=== PATIENT | female | born 1960 | race Caucasian/White ===

== ENCOUNTER 2019-04-11 08:45 | Inpatient (IN) | payer OTHER ==
[~2019-04-11] VITALS: Ht 177.8 cm; Wt 69.0 kg
--- NOTE | 2019-04-11 09:04 | NUR ---
PATIENT ARRIVES TO THE ER WITH ABDOMINAL PAIN AND NUMBNESS THAT BEGAN ONE WEEK AGO AND HAS GOTTEN WORSE, HER BELLY IS SWOLLEN LIKE ASCITES. SHE QUIT DRINKING ALCOHOL ONE WEEK AGO. SHE CAN'T EAT WELL. SHE IS WEAK. SHE IS JAUNDICED. SHE STATES NO LIVER HISTORY OF ANY TYPE OF FAILURE.
[2019-04-11 09:29] LABS: MEAN CORPUSCULAR HEMOGLOBIN 40.7 pg (27.0-34.8); MEAN CORPUSCULAR HGB CONC 34.4 g/dL (32.4-35.8); MEAN CORPUSCULAR VOLUME 118.3 fL (80-100); MEAN PLATELET VOLUME 7.2 fL (7.4-10.4); PLATELET COUNT 218 x10^3/uL (130-400); RED BLOOD COUNT 2.71 x10^6/uL (3.82-5.3); RED CELL DISTRIBUTION WIDTH 19.5 % (9.6-15.2)
--- NOTE | 2019-04-11 09:37 | NUR ---
cath urine urine is oily orange color barely any - 20 ml. sent to lab labeled in her presence
[2019-04-11 09:38] LABS: INTERNATIONAL NORMALIZED RATIO 1.5 (0.93-1.1); PROTHROMBIN TIME 15.5 Seconds (9.6-11.5)
--- NOTE | 2019-04-11 09:47 | NUR ---
patient left for u/s of legs and belly
[2019-04-11 09:52] LABS: BASOPHILS # (AUTO) 0.01 x10^3/uL (0-0.1); BASOPHILS % (AUTO) 0 % (0-1); EOSINOPHILS # (AUTO) 0.01 x10^3/uL (0-0.4); EOSINOPHILS % (AUTO) 0 % (1-7); LYMPHOCYTES # (AUTO) 0.66 x10^3/uL (1-3.4); LYMPHOCYTES % (AUTO) 14 % (22-44); MD SCAN; MONOCYTES # (AUTO) 0.81 x10^3/uL (0.2-0.8); MONOCYTES % (AUTO) 17 % (2-9); NEUTROPHILS # (AUTO) 3.19 x10^3/uL (1.8-6.8); NEUTROPHILS % (AUTO) 68 % (42-75)
[2019-04-11 09:53] LABS: CHLORIDE 85 mmol/L (98-107)
[2019-04-11 09:57] LABS: ALBUMIN 2.4 g/dL (3.4-5.0); ANION GAP 12 mmol/L (5-15)
[2019-04-11] MEDS ORDERED: SODIUM CHLORIDE FLUSH 10ML SYR IVF ONE (10:00)
[2019-04-11 10:01] LABS: ALANINE AMINOTRANSFERASE 154 U/L (12-78); ALKALINE PHOSPHATASE 287 U/L (45-117); CREATININE 0.59 mg/dL (0.55-1.02); TOTAL PROTEIN 6.2 g/dL (6.4-8.2)
[2019-04-11 10:02] LABS: MICROSCOPIC INDICATED
[2019-04-11 10:04] LABS: CULTURE INDICATED? NO
[2019-04-11] MEDS ORDERED: POTASSIUM CHLORIDE 20 MEQ TAB.ER.PRT ONE (11:00)
[2019-04-11] MEDS ORDERED: POTASSIUM CHLORIDE 20 MEQ TAB.ER.PRT PO ONE (11:00)
--- NOTE | 2019-04-11 11:20 | NUR ---
patient infusing kcl on pump and monitor, and medicated. we are awaiting admission orders. vss.
[2019-04-11] MEDS ORDERED: SODIUM CHLORIDE FLUSH 10ML SYR IVF PRN (11:30)
[2019-04-11] MEDS ORDERED: LORazepam 1MG TABLET PO PRN ×3 (12:00)
[2019-04-11] MEDS ORDERED: ENOXAPARIN 40 MG/0.4 ML SQ SCH (12:00)
[2019-04-11] MEDS ORDERED: ONDANSETRON ODT 4 MG PO PRN (12:00)
[2019-04-11] MEDS ORDERED: LORazepam 0.5MG TABLET PO PRN (12:00)
[2019-04-11] MEDS ORDERED: ONDANSETRON 2MG/ML, 2ML IVPush PRN (12:00)
[2019-04-11] MEDS ORDERED: ACETAMINOPHEN 500 MG TABLET PO PRN (12:00)
[2019-04-11] MEDS ORDERED: POTASSIUM CHLORIDE 40 MEQ in SODIUM CHLORIDE 0.9% 1,000 ML IV ONE (12:00)
[2019-04-11 12:16] VITALS: BP 110/75
[2019-04-11] MEDS ORDERED: FLU VAC QS 19-20(4YR UP)CEL/PF 0.5 ML IM-VACC ONE (13:30)
[2019-04-11] MEDS: MULTIVITAMINS/MINERALS TABLET PO SCH (14:43)
[2019-04-11] MEDS: FOLIC ACID 1 MG TABLET PO SCH (14:43)
[2019-04-11] MEDS: THIAMINE 100MG TABLET PO SCH (14:44)
[2019-04-11 16:18] LABS: ANION GAP 10 mmol/L (5-15); BILIRUBIN, DIRECT 8.2 mg/dL (0.1-0.2); CALCIUM 8.4 mg/dL (8.5-10.1); CHLORIDE 91 mmol/L (98-107); CREATININE 0.66 mg/dL (0.55-1.02)
[2019-04-11] MEDS: POTASSIUM CHLORIDE 20 MEQ TAB.ER.PRT PO SCH (16:33)
[2019-04-11 16:44] LABS: BILIRUBIN,INDIRECT 1.9 mg/dL (0.0-2.0); BILIRUBIN,TOTAL 10.1 mg/dL (0.2-1.0)
[2019-04-11 18:53] VITALS: BP 104/72
[2019-04-12 00:48] VITALS: BP 100/68
[2019-04-12 05:06] LABS: MEAN CORPUSCULAR HEMOGLOBIN 40.4 pg (27.0-34.8); MEAN CORPUSCULAR HGB CONC 33.9 g/dL (32.4-35.8); MEAN PLATELET VOLUME 7.5 fL (7.4-10.4); PLATELET COUNT 238 x10^3/uL (130-400); RED BLOOD COUNT 2.69 x10^6/uL (3.82-5.3)
[2019-04-12 05:08] LABS: ALBUMIN 2.3 g/dL (3.4-5.0); ANION GAP 6 mmol/L (5-15); CALCIUM 8.1 mg/dL (8.5-10.1); CHLORIDE 92 mmol/L (98-107)
[2019-04-12 05:12] LABS: ALANINE AMINOTRANSFERASE 141 U/L (12-78); ALKALINE PHOSPHATASE 278 U/L (45-117); BILIRUBIN,TOTAL 8.8 mg/dL (0.2-1.0); CREATININE 0.57 mg/dL (0.55-1.02); TOTAL PROTEIN 5.9 g/dL (6.4-8.2)
[2019-04-12 06:27] LABS: BASOPHILS # (AUTO) 0.01 x10^3/uL (0-0.1); BASOPHILS % (AUTO) 0 % (0-1); EOSINOPHILS # (AUTO) 0.01 x10^3/uL (0-0.4); EOSINOPHILS % (AUTO) 0 % (1-7); LYMPHOCYTES # (AUTO) 0.95 x10^3/uL (1-3.4); LYMPHOCYTES % (AUTO) 21 % (22-44); MD SCAN; MONOCYTES % (AUTO) 13 % (2-9); NEUTROPHILS # (AUTO) 3.04 x10^3/uL (1.8-6.8); NEUTROPHILS % (AUTO) 66 % (42-75); RED CELL DISTRIBUTION WIDTH 20.2 % (9.6-15.2)
[2019-04-12] MEDS: THIAMINE 100MG TABLET PO SCH (09:13)
[2019-04-12] MEDS: MULTIVITAMINS/MINERALS TABLET PO SCH (09:13)
[2019-04-12] MEDS: POTASSIUM CHLORIDE 20 MEQ TAB.ER.PRT PO SCH ×2 (09:13→18:23)
[2019-04-12] MEDS: FOLIC ACID 1 MG TABLET PO SCH (09:13)
[2019-04-12 09:29] VITALS: BP 99/71
[2019-04-12 14:45] LABS: ANA SCREEN POSITIVE (Negative); ANA TITER MIXED; ANTI-NUCLEAR ANTIBODY PATTERN MIXED
[2019-04-12 15:49] VITALS: BP 99/69
[2019-04-12 19:25] VITALS: BP 104/74
[2019-04-13 01:31] VITALS: BP 98/65
[2019-04-13 05:17] LABS: MEAN CORPUSCULAR HEMOGLOBIN 40.6 pg (27.0-34.8); MEAN CORPUSCULAR HGB CONC 33.8 g/dL (32.4-35.8); MEAN CORPUSCULAR VOLUME 120.2 fL (80-100); MEAN PLATELET VOLUME 7.6 fL (7.4-10.4); PLATELET COUNT 208 x10^3/uL (130-400); RED BLOOD COUNT 2.57 x10^6/uL (3.82-5.3); RED CELL DISTRIBUTION WIDTH 20.5 % (9.6-15.2)
[2019-04-13 05:25] LABS: CHLORIDE 94 mmol/L (98-107)
[2019-04-13 05:40] LABS: ALANINE AMINOTRANSFERASE 127 U/L (12-78); ALBUMIN 2.1 g/dL (3.4-5.0); ALKALINE PHOSPHATASE 256 U/L (45-117); ANION GAP 5 mmol/L (5-15); BILIRUBIN,TOTAL 7.7 mg/dL (0.2-1.0); CREATININE 0.48 mg/dL (0.55-1.02); TOTAL PROTEIN 5.6 g/dL (6.4-8.2)
[2019-04-13 05:54] LABS: ANISOCYTOSIS 1+; BASOPHILS # (AUTO) 0.02 x10^3/uL (0-0.1); BASOPHILS % (AUTO) 1 % (0-1); EOSINOPHILS # (AUTO) 0.03 x10^3/uL (0-0.4); EOSINOPHILS % (AUTO) 1 % (1-7); LYMPHOCYTES # (AUTO) 1.06 x10^3/uL (1-3.4); LYMPHOCYTES % (AUTO) 25 % (22-44); MD MORPH REVIEW ONLY; MONOCYTES # (AUTO) 0.58 x10^3/uL (0.2-0.8); MONOCYTES % (AUTO) 14 % (2-9); NEUTROPHILS # (AUTO) 2.61 x10^3/uL (1.8-6.8); NEUTROPHILS % (AUTO) 61 % (42-75); TARGET CELLS 1+
[2019-04-13 05:55] LABS: <PLATELET ESTIMATE> ADEQUATE; <PLT MORPHOLOGY> NORMAL PLT MORPH; POLYCHROMASIA 1+
[2019-04-13 07:47] VITALS: BP 100/70
[2019-04-13] MEDS: POTASSIUM CHLORIDE 20 MEQ TAB.ER.PRT PO SCH ×2 (08:11→16:59)
[2019-04-13] MEDS: MULTIVITAMINS/MINERALS TABLET PO SCH (08:11)
[2019-04-13] MEDS: THIAMINE 100MG TABLET PO SCH (08:11)
[2019-04-13] MEDS: FOLIC ACID 1 MG TABLET PO SCH (08:11)
[2019-04-13] MEDS ORDERED: POTASSIUM PHOSPHATE 44 MEQ in SODIUM CHLORIDE 0.9% 500 ML IV ONE (09:00)
[2019-04-13] MEDS ORDERED: MAGNESIUM SULFATE PMX 2GM/50ML 50 ML IV ONE (09:00)
[2019-04-13 14:25] VITALS: BP 96/66
[2019-04-13 19:16] VITALS: BP 90/62
[2019-04-14 00:54] VITALS: BP 96/66
[2019-04-14 05:17] LABS: MEAN CORPUSCULAR HGB CONC 34.3 g/dL (32.4-35.8); MEAN CORPUSCULAR VOLUME 122.3 fL (80-100); MEAN PLATELET VOLUME 7.6 fL (7.4-10.4); PLATELET COUNT 221 x10^3/uL (130-400); RED BLOOD COUNT 2.41 x10^6/uL (3.82-5.3); RED CELL DISTRIBUTION WIDTH 21.1 % (9.6-15.2)
[2019-04-14 05:23] LABS: INTERNATIONAL NORMALIZED RATIO 1.54 (0.93-1.1); PROTHROMBIN TIME 15.9 Seconds (9.6-11.5)
[2019-04-14 05:29] LABS: CHLORIDE 96 mmol/L (98-107)
[2019-04-14 05:33] LABS: ANION GAP 6 mmol/L (5-15); CALCIUM 7.5 mg/dL (8.5-10.1); CREATININE 0.46 mg/dL (0.55-1.02)
[2019-04-14 05:34] LABS: ALANINE AMINOTRANSFERASE 114 U/L (12-78); ALBUMIN 1.9 g/dL (3.4-5.0); ALKALINE PHOSPHATASE 227 U/L (45-117); BILIRUBIN,TOTAL 6.6 mg/dL (0.2-1.0); TOTAL PROTEIN 5.3 g/dL (6.4-8.2)
[2019-04-14 06:13] LABS: BASOPHILS # (AUTO) 0.02 x10^3/uL (0-0.1); BASOPHILS % (AUTO) 1 % (0-1); EOSINOPHILS # (AUTO) 0.05 x10^3/uL (0-0.4); EOSINOPHILS % (AUTO) 1 % (1-7); LYMPHOCYTES # (AUTO) 1.03 x10^3/uL (1-3.4); LYMPHOCYTES % (AUTO) 22 % (22-44); MD SCAN; MONOCYTES # (AUTO) 0.74 x10^3/uL (0.2-0.8); MONOCYTES % (AUTO) 16 % (2-9); NEUTROPHILS # (AUTO) 2.89 x10^3/uL (1.8-6.8); NEUTROPHILS % (AUTO) 61 % (42-75)
[2019-04-14 07:25] VITALS: BP 97/68
[2019-04-14] MEDS: THIAMINE 100MG TABLET PO SCH (08:19)
[2019-04-14] MEDS: POTASSIUM CHLORIDE 20 MEQ TAB.ER.PRT PO SCH ×2 (08:19→18:13)
[2019-04-14] MEDS: MULTIVITAMINS/MINERALS TABLET PO SCH (08:19)
[2019-04-14] MEDS: FOLIC ACID 1 MG TABLET PO SCH (08:20)
[2019-04-14] MEDS ORDERED: PHYTONADIONE 5 MG TABLET PO ONE (13:00)
[2019-04-14 14:11] VITALS: BP 94/63
[2019-04-14 19:07] VITALS: BP 101/69
[2019-04-15 00:15] VITALS: BP 135/93
[2019-04-15 05:28] LABS: MEAN CORPUSCULAR HEMOGLOBIN 41.8 pg (27.0-34.8); MEAN PLATELET VOLUME 7.7 fL (7.4-10.4); PLATELET COUNT 221 x10^3/uL (130-400); RED BLOOD COUNT 2.33 x10^6/uL (3.82-5.3); RED CELL DISTRIBUTION WIDTH 21.6 % (9.6-15.2)
[2019-04-15 05:30] LABS: ALANINE AMINOTRANSFERASE 102 U/L (12-78); ALBUMIN 1.8 g/dL (3.4-5.0); ANION GAP 6 mmol/L (5-15); CALCIUM 7.7 mg/dL (8.5-10.1); CHLORIDE 98 mmol/L (98-107); CREATININE 0.42 mg/dL (0.55-1.02)
[2019-04-15 05:32] LABS: ALKALINE PHOSPHATASE 219 U/L (45-117); BILIRUBIN,TOTAL 6.4 mg/dL (0.2-1.0); TOTAL PROTEIN 5.2 g/dL (6.4-8.2)
[2019-04-15 05:39] LABS: INTERNATIONAL NORMALIZED RATIO 1.47 (0.93-1.1); PROTHROMBIN TIME 15.2 Seconds (9.6-11.5)
[2019-04-15 06:15] LABS: BASOPHILS # (AUTO) 0.01 x10^3/uL (0-0.1); BASOPHILS % (AUTO) 0 % (0-1); EOSINOPHILS # (AUTO) 0.03 x10^3/uL (0-0.4); EOSINOPHILS % (AUTO) 1 % (1-7); LYMPHOCYTES # (AUTO) 0.83 x10^3/uL (1-3.4); LYMPHOCYTES % (AUTO) 16 % (22-44); MD SCAN; MONOCYTES # (AUTO) 0.69 x10^3/uL (0.2-0.8); MONOCYTES % (AUTO) 13 % (2-9); NEUTROPHILS # (AUTO) 3.75 x10^3/uL (1.8-6.8); NEUTROPHILS % (AUTO) 71 % (42-75)
[2019-04-15 06:40] VITALS: BP 93/62
[2019-04-15] MEDS ORDERED: PHYTONADIONE 5 MG TABLET PO ONE (08:00)
[2019-04-15] MEDS: MULTIVITAMINS/MINERALS TABLET PO SCH (09:49)
[2019-04-15] MEDS: POTASSIUM CHLORIDE 20 MEQ TAB.ER.PRT PO SCH ×2 (09:49→16:59)
[2019-04-15] MEDS: THIAMINE 100MG TABLET PO SCH (09:49)
[2019-04-15] MEDS: FOLIC ACID 1 MG TABLET PO SCH (09:49)
[2019-04-15 13:45] VITALS: BP 95/66
[2019-04-15 19:27] VITALS: BP 101/72
[2019-04-16] VITALS (11 sets, daily range): BP systolic 94–126; BP diastolic 64–87
[2019-04-16 05:46] LABS: MEAN CORPUSCULAR HEMOGLOBIN 41.5 pg (27.0-34.8); MEAN CORPUSCULAR VOLUME 121.9 fL (80-100); MEAN PLATELET VOLUME 7.3 fL (7.4-10.4); PLATELET COUNT 230 x10^3/uL (130-400); RED BLOOD COUNT 2.39 x10^6/uL (3.82-5.3); RED CELL DISTRIBUTION WIDTH 20.6 % (9.6-15.2)
[2019-04-16 05:53] LABS: ALANINE AMINOTRANSFERASE 97 U/L (12-78); ALBUMIN 1.7 g/dL (3.4-5.0); ANION GAP 4 mmol/L (5-15); CHLORIDE 97 mmol/L (98-107)
[2019-04-16 05:55] LABS: ALKALINE PHOSPHATASE 205 U/L (45-117); BILIRUBIN,TOTAL 6.6 mg/dL (0.2-1.0); TOTAL PROTEIN 5.2 g/dL (6.4-8.2)
[2019-04-16 06:45] LABS: BASOPHILS # (AUTO) 0.02 x10^3/uL (0-0.1); BASOPHILS % (AUTO) 0 % (0-1); EOSINOPHILS # (AUTO) 0.04 x10^3/uL (0-0.4); EOSINOPHILS % (AUTO) 1 % (1-7); LYMPHOCYTES # (AUTO) 0.94 x10^3/uL (1-3.4); LYMPHOCYTES % (AUTO) 19 % (22-44); MD SCAN; MONOCYTES # (AUTO) 0.66 x10^3/uL (0.2-0.8); MONOCYTES % (AUTO) 13 % (2-9); NEUTROPHILS # (AUTO) 3.43 x10^3/uL (1.8-6.8); NEUTROPHILS % (AUTO) 67 % (42-75)
[2019-04-16] MEDS: THIAMINE 100MG TABLET PO SCH (09:06)
[2019-04-16] MEDS: POTASSIUM CHLORIDE 20 MEQ TAB.ER.PRT PO SCH (09:06)
[2019-04-16] MEDS: FOLIC ACID 1 MG TABLET PO SCH (09:06)
[2019-04-16] MEDS: MULTIVITAMINS/MINERALS TABLET PO SCH (09:06)
[2019-04-16 09:13] LABS: INTERNATIONAL NORMALIZED RATIO 1.29 (0.93-1.1); PROTHROMBIN TIME 13.4 Seconds (9.6-11.5)
[2019-04-16] MEDS ORDERED: NALOXONE 1 MG/ML, 2ML ONE (15:30)
[2019-04-16] MEDS ORDERED: MIDAZOLAM 1 MG/ML, 5ML ONE (15:30)
[2019-04-16] MEDS ORDERED: FENTANYL PF 100 MCG/2ML ONE (15:30)
[2019-04-16] MEDS ORDERED: FLUMAZENIL 0.1 MG/1 ML, 5ML ONE (15:30)
[2019-04-17 01:51] VITALS: BP 96/62
[2019-04-17 05:42] LABS: INTERNATIONAL NORMALIZED RATIO 1.36 (0.93-1.1); PROTHROMBIN TIME 14.1 Seconds (9.6-11.5)
[2019-04-17 05:54] LABS: CHLORIDE 99 mmol/L (98-107); MEAN CORPUSCULAR HEMOGLOBIN 41.5 pg (27.0-34.8); MEAN CORPUSCULAR HGB CONC 34.1 g/dL (32.4-35.8); MEAN CORPUSCULAR VOLUME 121.8 fL (80-100); MEAN PLATELET VOLUME 7.4 fL (7.4-10.4); PLATELET COUNT 235 x10^3/uL (130-400); RED BLOOD COUNT 2.36 x10^6/uL (3.82-5.3); RED CELL DISTRIBUTION WIDTH 20.8 % (9.6-15.2)
[2019-04-17 06:05] LABS: ALANINE AMINOTRANSFERASE 94 U/L (12-78); ALBUMIN 1.8 g/dL (3.4-5.0); ALKALINE PHOSPHATASE 214 U/L (45-117); ANION GAP 7 mmol/L (5-15); CALCIUM 8.1 mg/dL (8.5-10.1); CREATININE 0.46 mg/dL (0.55-1.02); TOTAL PROTEIN 5.2 g/dL (6.4-8.2)
[2019-04-17 06:26] LABS: BASOPHILS # (AUTO) 0.02 x10^3/uL (0-0.1); BASOPHILS % (AUTO) 0 % (0-1); EOSINOPHILS # (AUTO) 0.02 x10^3/uL (0-0.4); EOSINOPHILS % (AUTO) 0 % (1-7); LYMPHOCYTES # (AUTO) 1.11 x10^3/uL (1-3.4); LYMPHOCYTES % (AUTO) 18 % (22-44); MD SCAN; MONOCYTES # (AUTO) 0.66 x10^3/uL (0.2-0.8); MONOCYTES % (AUTO) 11 % (2-9); NEUTROPHILS # (AUTO) 4.23 x10^3/uL (1.8-6.8); NEUTROPHILS % (AUTO) 70 % (42-75)
[2019-04-17] MEDS: MULTIVITAMINS/MINERALS TABLET PO SCH (08:47)
[2019-04-17] MEDS: FOLIC ACID 1 MG TABLET PO SCH (08:47)
[2019-04-17] MEDS: THIAMINE 100MG TABLET PO SCH (08:48)
[2019-04-17 08:59] VITALS: BP 95/68
[2019-04-17 13:26] VITALS: BP 91/61
[2019-04-17 19:35] VITALS: BP 100/66
[2019-04-18 00:58] VITALS: BP 110/74
[2019-04-18 06:16] LABS: MEAN CORPUSCULAR HEMOGLOBIN 41.9 pg (27.0-34.8); MEAN CORPUSCULAR HGB CONC 33.9 g/dL (32.4-35.8); MEAN CORPUSCULAR VOLUME 123.8 fL (80-100); MEAN PLATELET VOLUME 7.5 fL (7.4-10.4); PLATELET COUNT 245 x10^3/uL (130-400); RED BLOOD COUNT 2.45 x10^6/uL (3.82-5.3); RED CELL DISTRIBUTION WIDTH 20.1 % (9.6-15.2)
[2019-04-18 06:28] LABS: CHLORIDE 96 mmol/L (98-107)
[2019-04-18 06:36] LABS: ALANINE AMINOTRANSFERASE 88 U/L (12-78); ALBUMIN 1.9 g/dL (3.4-5.0); ALKALINE PHOSPHATASE 232 U/L (45-117); ANION GAP 9 mmol/L (5-15); BILIRUBIN,TOTAL 8.1 mg/dL (0.2-1.0); CALCIUM 7.9 mg/dL (8.5-10.1); CREATININE 0.36 mg/dL (0.55-1.02); TOTAL PROTEIN 5.3 g/dL (6.4-8.2)
[2019-04-18 06:47] LABS: BASOPHILS # (AUTO) 0.02 x10^3/uL (0-0.1); BASOPHILS % (AUTO) 1 % (0-1); EOSINOPHILS # (AUTO) 0.04 x10^3/uL (0-0.4); EOSINOPHILS % (AUTO) 1 % (1-7); LYMPHOCYTES # (AUTO) 1.13 x10^3/uL (1-3.4); LYMPHOCYTES % (AUTO) 23 % (22-44); MD MORPH REVIEW ONLY; MONOCYTES # (AUTO) 0.74 x10^3/uL (0.2-0.8); MONOCYTES % (AUTO) 15 % (2-9); NEUTROPHILS # (AUTO) 2.99 x10^3/uL (1.8-6.8); NEUTROPHILS % (AUTO) 61 % (42-75)
[2019-04-18 06:48] LABS: ANISOCYTOSIS 1+
[2019-04-18 06:49] LABS: POLYCHROMASIA 1+
[2019-04-18 06:52] LABS: <PLATELET ESTIMATE> ADEQUATE; <PLT MORPHOLOGY> NORMAL PLT MORPH; TARGET CELLS 1+
[2019-04-18 08:18] VITALS: BP 104/73
[2019-04-18] MEDS: THIAMINE 100MG TABLET PO SCH (08:24)
[2019-04-18] MEDS: MULTIVITAMINS/MINERALS TABLET PO SCH (08:24)
[2019-04-18] MEDS: FOLIC ACID 1 MG TABLET PO SCH (08:24)
[2019-04-18 13:05] VITALS: BP 103/72
[2019-04-18 19:55] VITALS: BP 102/65
[2019-04-19 00:39] VITALS: BP 106/72
[2019-04-19] MEDS: FOLIC ACID 1 MG TABLET PO SCH (08:42)
[2019-04-19] MEDS: MULTIVITAMINS/MINERALS TABLET PO SCH (08:42)
[2019-04-19] MEDS: THIAMINE 100MG TABLET PO SCH (08:42)
[2019-04-19 20:08] VITALS: BP 102/72
[2019-04-20 00:59] VITALS: BP 117/78
[2019-04-20 05:44] LABS: MEAN CORPUSCULAR HEMOGLOBIN 41.4 pg (27.0-34.8); MEAN CORPUSCULAR HGB CONC 33.7 g/dL (32.4-35.8); MEAN CORPUSCULAR VOLUME 122.8 fL (80-100); MEAN PLATELET VOLUME 7.2 fL (7.4-10.4); PLATELET COUNT 268 x10^3/uL (130-400); RED BLOOD COUNT 2.39 x10^6/uL (3.82-5.3); RED CELL DISTRIBUTION WIDTH 19.9 % (9.6-15.2)
[2019-04-20 05:51] LABS: CHLORIDE 99 mmol/L (98-107)
[2019-04-20 06:04] LABS: ALANINE AMINOTRANSFERASE 73 U/L (12-78); ALBUMIN 1.7 g/dL (3.4-5.0); ALKALINE PHOSPHATASE 212 U/L (45-117); ANION GAP 8 mmol/L (5-15); CALCIUM 7.8 mg/dL (8.5-10.1); CREATININE 0.39 mg/dL (0.55-1.02); TOTAL PROTEIN 5.3 g/dL (6.4-8.2)
[2019-04-20 06:09] LABS: MD YES
[2019-04-20 06:12] LABS: BAND#(MANUAL) 0.04 x10^3/uL; BANDS%(MANUAL) 1 % (0-7); BASOS#(MANUAL) 0.09 x10^3/uL (0-0.1); BASOS% (MANUAL) 2 % (0-1); EOS#(MANUAL) 0.13 x10^3/uL (0.0-0.4); EOS% (MANUAL) 3 % (1-7); LYMPH#(MANUAL) 1.06 x10^3/uL (1-3.4); LYMPHS% (MANUAL) 24 % (22-44); METAMYELOCYTES# (MANUAL) 0.04 x10^3/uL (0-0); METAMYELOCYTES% (MANUAL) 1 % (0-1); MONOS#(MANUAL) 0.35 x10^3/uL (0.3-2.7); MONOS% (MANUAL) 8 % (2-9); MYELOCYTES# (MANUAL) 0.04 x10^3/uL (0-0); MYELOCYTES% (MANUAL) 1 % (0-0); SEG#(MANUAL) 2.64 x10^3/uL (1.8-6.8); SEGS% (MANUAL) 60 % (42-75)
[2019-04-20 06:13] LABS: ANISOCYTOSIS 1+; POLYCHROMASIA 1+
[2019-04-20 06:15] LABS: <PLATELET ESTIMATE> ADEQUATE; <PLT MORPHOLOGY> NORMAL PLT MORPH; TARGET CELLS 1+
[2019-04-20 06:57] VITALS: BP 106/72
[2019-04-20] MEDS: FOLIC ACID 1 MG TABLET PO SCH (08:37)
[2019-04-20] MEDS: THIAMINE 100MG TABLET PO SCH (08:37)
[2019-04-20] MEDS: MULTIVITAMINS/MINERALS TABLET PO SCH (08:37)
[2019-04-20 12:49] VITALS: BP 100/69
[2019-04-20] MEDS ORDERED: POTASSIUM CHLORIDE 20 MEQ in SODIUM CHLORIDE 0.9% 250 ML IV ONE (15:30)
[2019-04-20] MEDS ORDERED: CHOLECALCIFEROL 400 UNITS/ML ORAL SOL PO SCH (16:30)
[2019-04-20] MEDS: ASCORBIC ACID 500 MG TABLET PO SCH (16:33)
[2019-04-20 19:50] VITALS: BP 100/63
[2019-04-20] MEDS: CALCIUM CARBONATE 500 MG TAB.CHEW PO SCH (20:45)
[2019-04-21 00:38] VITALS: BP 113/77
[2019-04-21 05:34] LABS: ALBUMIN 1.7 g/dL (3.4-5.0); ANION GAP 6 mmol/L (5-15); CALCIUM 7.9 mg/dL (8.5-10.1); CHLORIDE 100 mmol/L (98-107); CREATININE 0.41 mg/dL (0.55-1.02)
[2019-04-21 05:55] LABS: MEAN CORPUSCULAR HEMOGLOBIN 41.1 pg (27.0-34.8); MEAN CORPUSCULAR HGB CONC 33.5 g/dL (32.4-35.8); MEAN CORPUSCULAR VOLUME 122.6 fL (80-100); PLATELET COUNT 281 x10^3/uL (130-400); RED BLOOD COUNT 2.45 x10^6/uL (3.82-5.3); RED CELL DISTRIBUTION WIDTH 19.3 % (9.6-15.2)
[2019-04-21 06:15] LABS: MD YES
[2019-04-21 06:21] LABS: ANISOCYTOSIS 1+; BAND#(MANUAL) 0.14 x10^3/uL; BANDS%(MANUAL) 3 % (0-7); BASOS% (MANUAL) 2 % (0-1); EOS#(MANUAL) 0.05 x10^3/uL (0.0-0.4); EOS% (MANUAL) 1 % (1-7); LYMPH#(MANUAL) 0.91 x10^3/uL (1-3.4); LYMPHS% (MANUAL) 19 % (22-44); MONOS#(MANUAL) 0.43 x10^3/uL (0.3-2.7); MONOS% (MANUAL) 9 % (2-9); SEG#(MANUAL) 3.17 x10^3/uL (1.8-6.8); SEGS% (MANUAL) 66 % (42-75)
[2019-04-21 06:22] LABS: <PLATELET ESTIMATE> ADEQUATE; <PLT MORPHOLOGY> NORMAL PLT MORPH; POLYCHROMASIA 1+
[2019-04-21 06:23] LABS: TARGET CELLS 1+
[2019-04-21 07:06] VITALS: BP 113/74
[2019-04-21] MEDS: MULTIVITS,STRESS FORMULA 1 TABLET PO SCH (08:06)
[2019-04-21] MEDS: FOLIC ACID 1 MG TABLET PO SCH (08:07)
[2019-04-21] MEDS: ASCORBIC ACID 500 MG TABLET PO SCH ×2 (08:07→17:04)
[2019-04-21] MEDS: CALCIUM CARBONATE 500 MG TAB.CHEW PO SCH ×2 (08:07→19:47)
[2019-04-21 12:10] VITALS: BP 112/76
[2019-04-21] MEDS: CHOLECALCIFEROL 400 UNITS TABLET PO SCH (17:04)
[2019-04-21 19:38] VITALS: BP 137/90
[2019-04-22 00:59] VITALS: BP 128/91
[2019-04-22 06:29] LABS: ALANINE AMINOTRANSFERASE 68 U/L (12-78); ALBUMIN 1.7 g/dL (3.4-5.0); ANION GAP 8 mmol/L (5-15); CALCIUM 7.8 mg/dL (8.5-10.1); CHLORIDE 98 mmol/L (98-107); CREATININE 0.32 mg/dL (0.55-1.02)
[2019-04-22 06:31] LABS: ALKALINE PHOSPHATASE 197 U/L (45-117); BILIRUBIN,TOTAL 5.4 mg/dL (0.2-1.0); TOTAL PROTEIN 5.4 g/dL (6.4-8.2)
[2019-04-22 07:14] VITALS: BP 116/79
[2019-04-22] MEDS: ASCORBIC ACID 500 MG TABLET PO SCH ×2 (08:18→16:42)
[2019-04-22] MEDS: CALCIUM CARBONATE 500 MG TAB.CHEW PO SCH ×2 (08:18→20:00)
[2019-04-22] MEDS: MULTIVITS,STRESS FORMULA 1 TABLET PO SCH (08:18)
[2019-04-22] MEDS: FOLIC ACID 1 MG TABLET PO SCH (08:18)
[2019-04-22] MEDS: POTASSIUM CHLORIDE 20 MEQ TAB.ER.PRT PO SCH ×2 (09:59→16:42)
[2019-04-22] MEDS ORDERED: MAGNESIUM SULFATE PMX 2GM/50ML 50 ML IV ONE (10:00)
[2019-04-22 12:32] VITALS: BP 106/74
[2019-04-22] MEDS: CHOLECALCIFEROL 400 UNITS TABLET PO SCH (16:42)
[2019-04-22 20:06] VITALS: BP 132/89
[2019-04-23 01:21] VITALS: BP 120/81
[2019-04-23 05:27] LABS: MEAN CORPUSCULAR HEMOGLOBIN 41.7 pg (27.0-34.8); MEAN CORPUSCULAR HGB CONC 33.5 g/dL (32.4-35.8); MEAN CORPUSCULAR VOLUME 124.8 fL (80-100); MEAN PLATELET VOLUME 7.4 fL (7.4-10.4); PLATELET COUNT 262 x10^3/uL (130-400); RED BLOOD COUNT 2.37 x10^6/uL (3.82-5.3); RED CELL DISTRIBUTION WIDTH 18.6 % (9.6-15.2)
[2019-04-23 05:32] LABS: ALANINE AMINOTRANSFERASE 63 U/L (12-78); ALBUMIN 1.6 g/dL (3.4-5.0); ANION GAP 6 mmol/L (5-15); CALCIUM 7.9 mg/dL (8.5-10.1); CHLORIDE 101 mmol/L (98-107); CREATININE 0.33 mg/dL (0.55-1.02)
[2019-04-23 05:35] LABS: ALKALINE PHOSPHATASE 189 U/L (45-117); BILIRUBIN,TOTAL 4.5 mg/dL (0.2-1.0); TOTAL PROTEIN 5.5 g/dL (6.4-8.2)
[2019-04-23 06:14] LABS: ANISOCYTOSIS 1+; BASOPHILS # (AUTO) 0.03 x10^3/uL (0-0.1); BASOPHILS % (AUTO) 1 % (0-1); EOSINOPHILS # (AUTO) 0.08 x10^3/uL (0-0.4); EOSINOPHILS % (AUTO) 2 % (1-7); LYMPHOCYTES # (AUTO) 1.08 x10^3/uL (1-3.4); LYMPHOCYTES % (AUTO) 22 % (22-44); MD MORPH REVIEW ONLY; MONOCYTES % (AUTO) 12 % (2-9); NEUTROPHILS % (AUTO) 63 % (42-75)
[2019-04-23 06:15] LABS: <PLATELET ESTIMATE> ADEQUATE; <PLT MORPHOLOGY> NORMAL PLT MORPH; POLYCHROMASIA 1+
[2019-04-23 06:31] VITALS: BP 106/72
[2019-04-23] MEDS: ASCORBIC ACID 500 MG TABLET PO SCH ×2 (08:00→16:03)
[2019-04-23] MEDS: MULTIVITS,STRESS FORMULA 1 TABLET PO SCH ×2 (09:00→16:03)
[2019-04-23] MEDS: FOLIC ACID 1 MG TABLET PO SCH ×2 (09:00→16:03)
[2019-04-23] MEDS: CALCIUM CARBONATE 500 MG TAB.CHEW PO SCH ×3 (09:00→21:07)
[2019-04-23 12:13] VITALS: BP 111/73
[2019-04-23] MEDS: CHOLECALCIFEROL 400 UNITS TABLET PO SCH (16:18)
[2019-04-23 20:18] VITALS: BP 124/83
[2019-04-24 04:15] VITALS: BP 108/79
[2019-04-24 05:16] LABS: MEAN CORPUSCULAR HEMOGLOBIN 41.5 pg (27.0-34.8); MEAN CORPUSCULAR HGB CONC 33.5 g/dL (32.4-35.8); MEAN PLATELET VOLUME 7.2 fL (7.4-10.4); PLATELET COUNT 287 x10^3/uL (130-400); RED BLOOD COUNT 2.52 x10^6/uL (3.82-5.3); RED CELL DISTRIBUTION WIDTH 17.9 % (9.6-15.2)
[2019-04-24 05:22] LABS: ALBUMIN 1.7 g/dL (3.4-5.0); ANION GAP 5 mmol/L (5-15); CALCIUM 8.2 mg/dL (8.5-10.1); CHLORIDE 101 mmol/L (98-107)
[2019-04-24 05:25] LABS: ALANINE AMINOTRANSFERASE 66 U/L (12-78); ALKALINE PHOSPHATASE 188 U/L (45-117); BILIRUBIN,TOTAL 4.6 mg/dL (0.2-1.0); CREATININE 0.39 mg/dL (0.55-1.02); TOTAL PROTEIN 5.7 g/dL (6.4-8.2)
[2019-04-24 06:16] LABS: BASOPHILS # (AUTO) 0.05 x10^3/uL (0-0.1); BASOPHILS % (AUTO) 1 % (0-1); EOSINOPHILS # (AUTO) 0.09 x10^3/uL (0-0.4); EOSINOPHILS % (AUTO) 2 % (1-7); LYMPHOCYTES # (AUTO) 1.24 x10^3/uL (1-3.4); LYMPHOCYTES % (AUTO) 23 % (22-44); MD SCAN; MONOCYTES # (AUTO) 0.66 x10^3/uL (0.2-0.8); MONOCYTES % (AUTO) 12 % (2-9); NEUTROPHILS # (AUTO) 3.28 x10^3/uL (1.8-6.8); NEUTROPHILS % (AUTO) 62 % (42-75)
[2019-04-24 08:03] VITALS: BP 114/76
[2019-04-24] MEDS: CALCIUM CARBONATE 500 MG TAB.CHEW PO SCH ×2 (08:08→20:12)
[2019-04-24] MEDS: FOLIC ACID 1 MG TABLET PO SCH (08:08)
[2019-04-24] MEDS: MULTIVITS,STRESS FORMULA 1 TABLET PO SCH (08:08)
[2019-04-24] MEDS: ASCORBIC ACID 500 MG TABLET PO SCH ×2 (08:08→16:38)
[2019-04-24 13:26] VITALS: BP 106/74
[2019-04-24] MEDS: CHOLECALCIFEROL 400 UNITS TABLET PO SCH (16:37)
[2019-04-24] MEDS ORDERED: LORazepam 2 MG/ML, 1ML IVPush ONE (17:30)
[2019-04-24] MEDS ORDERED: LORazepam 2 MG/ML, 1ML ONE (17:30)
[2019-04-24 20:12] VITALS: BP 103/69
[2019-04-25 01:12] VITALS: BP 109/79
[2019-04-25 06:15] VITALS: BP 103/74
[2019-04-25 06:23] LABS: MEAN CORPUSCULAR HEMOGLOBIN 42.2 pg (27.0-34.8); MEAN CORPUSCULAR HGB CONC 33.8 g/dL (32.4-35.8); MEAN CORPUSCULAR VOLUME 124.7 fL (80-100); MEAN PLATELET VOLUME 7.3 fL (7.4-10.4); PLATELET COUNT 291 x10^3/uL (130-400); RED BLOOD COUNT 2.51 x10^6/uL (3.82-5.3); RED CELL DISTRIBUTION WIDTH 17.5 % (9.6-15.2)
[2019-04-25 06:31] LABS: CHLORIDE 101 mmol/L (98-107)
[2019-04-25 06:38] LABS: ALANINE AMINOTRANSFERASE 62 U/L (12-78); ALBUMIN 1.8 g/dL (3.4-5.0); ALKALINE PHOSPHATASE 194 U/L (45-117); ANION GAP 7 mmol/L (5-15); BILIRUBIN,TOTAL 4.3 mg/dL (0.2-1.0); CALCIUM 8.3 mg/dL (8.5-10.1); TOTAL PROTEIN 5.7 g/dL (6.4-8.2)
[2019-04-25 06:49] LABS: BASOPHILS # (AUTO) 0.03 x10^3/uL (0-0.1); BASOPHILS % (AUTO) 1 % (0-1); EOSINOPHILS # (AUTO) 0.09 x10^3/uL (0-0.4); EOSINOPHILS % (AUTO) 2 % (1-7); LYMPHOCYTES # (AUTO) 1.46 x10^3/uL (1-3.4); LYMPHOCYTES % (AUTO) 29 % (22-44); MD SCAN; MONOCYTES % (AUTO) 12 % (2-9); NEUTROPHILS % (AUTO) 56 % (42-75)
[2019-04-25] MEDS: MULTIVITS,STRESS FORMULA 1 TABLET PO SCH (08:36)
[2019-04-25] MEDS: FOLIC ACID 1 MG TABLET PO SCH (08:36)
[2019-04-25] MEDS: ASCORBIC ACID 500 MG TABLET PO SCH (08:36)
[2019-04-25] MEDS: CALCIUM CARBONATE 500 MG TAB.CHEW PO SCH (08:36)
[2019-04-25 08:55] LABS: INTERNATIONAL NORMALIZED RATIO 1.23 (0.93-1.1); PROTHROMBIN TIME 12.8 Seconds (9.6-11.5)
[2019-04-25] MEDS ORDERED: THIAMINE 100MG TABLET PO SCH (09:00)
[2019-04-25] MEDS ORDERED: FOLI-17 PO (10:35)
[2019-04-25] MEDS ORDERED: THIA100T67 PO (10:35)
[2019-04-25 15:03] VITALS: BP 118/80
[2019-04-25] MEDS: CHOLECALCIFEROL 400 UNITS TABLET PO SCH (16:27)
== END 2019-04-25 16:44 | DRG 432 ==
LOC: ED 09:18 → EDIP 11:25 → 4EST 11:50 → 4WST 04-15 22:27 → 3N 04-22 22:52
PROVIDERS: ADMIT Family Medicine; ATTEND Hospitalist
PROC: 30233K1 Transfusion of Nonautologous Frozen Plasma into Peripheral Vein, Percutaneous Approach (ICD-10-PCS; principal; 2019-04-16)
PROC: 0FB03ZX Excision of Liver, Percutaneous Approach, Diagnostic (ICD-10-PCS; 2019-04-16)
DX: K70.11 Alcoholic hepatitis with ascites (principal); E43 Unspecified severe protein-calorie malnutrition; E87.1 Hypo-osmolality and hyponatremia; D68.59 Other primary thrombophilia; K70.31 Alcoholic cirrhosis of liver with ascites; D53.9 Nutritional anemia, unspecified; D75.89 Other specified diseases of blood and blood-forming organs; E87.6 Hypokalemia; F10.10 Alcohol abuse, uncomplicated; K80.20 Calculus of gallbladder without cholecystitis without obstruction; Z68.21 Body mass index [BMI] 21.0-21.9, adult
CPT/HCPCS: 36415; 47000; 74181; 76700; 76942; 80048; 80053; 80069; 80307; 81001; 82140; 82247; 82248; 82607; 82728; 83690; 83735; 84100; 84466; 85025; 85610; 86038; 86039; 86705; 86706; 86803; 86850; 86900; 87340; 88307; 88313; 90674; 93005; 93970; 96365; 99156; G0378; J1650; J2250; J3010; J3480; J2060; J2310; J3475; J7030; J7040; J7050; P9017

== ENCOUNTER 2019-06-20 08:25 | Day surgery (SDC) | payer OTHER ==
[~2019-06-20] VITALS: Ht 177.8 cm; Wt 55.6 kg
[~2019-06-20 08:25] MED LIST: FOLI-17 PO; FURO20TA3 PO; GABA300C10 PO; SPIR25TA5 PO; THIA100T67 PO
[2019-06-20] MEDS ORDERED: LACTATED RINGERS 1,000 ML IV ONE (09:20)
[2019-06-20 09:35] VITALS: BP 119/76
[2019-06-20] MEDS ORDERED: CEFUROXIME 1.5 GM ONE (09:58)
[2019-06-20] MEDS ORDERED: PROPOFOL 10 MG/ML, 20ML ONE ×2 (10:16)
[2019-06-20] MEDS ORDERED: EPHEDRINE 50 MG/ML, 1ML IM PRN (10:30)
[2019-06-20] MEDS ORDERED: HYDROmorphone 2 MG/ML, 1ML IVPush PRN (10:30)
[2019-06-20] MEDS ORDERED: FENTANYL PF 100 MCG/2ML IV PRN (10:30)
[2019-06-20] MEDS ORDERED: MIDAZOLAM 1 MG/ML, 2ML IV PRN (10:30)
[2019-06-20] MEDS ORDERED: ONDANSETRON ODT 8 MG PO PRN (10:30)
[2019-06-20] MEDS ORDERED: DIAZEPAM 5 MG/ML, 2ML IVPush PRN (10:30)
[2019-06-20] MEDS ORDERED: hydrALAzine 20 MG/ML, 1ML IV PRN (10:30)
[2019-06-20] MEDS ORDERED: PROMETHAZINE 25 MG/ML, 1ML IV PRN (10:30)
[2019-06-20] MEDS ORDERED: DIPHENHYDRAMINE 50 MG/ML, 1ML IVPush PRN (10:30)
[2019-06-20] MEDS ORDERED: ONDANSETRON 2MG/ML, 2ML IV PRN (10:30)
[2019-06-20] MEDS ORDERED: METOPROLOL 1 MG/ML, 5ML IV PRN (10:30)
[2019-06-20] MEDS ORDERED: EPHEDRINE 50 MG/ML, 1ML IVPush PRN (10:30)
== END 2019-06-20 11:44 | disposition home or self-care (01) ==
LOC: OUT 08:25
PROVIDERS: ATTEND Internal Medicine
DX: Z12.11 Encounter for screening for malignant neoplasm of colon (principal); K57.30 Diverticulosis of large intestine without perforation or abscess without bleeding; K64.1 Second degree hemorrhoids; K70.31 Alcoholic cirrhosis of liver with ascites; K76.6 Portal hypertension; K31.89 Other diseases of stomach and duodenum; F41.9 Anxiety disorder, unspecified; Z98.890 Other specified postprocedural states; Z87.891 Personal history of nicotine dependence; Z72.89 Other problems related to lifestyle
CPT/HCPCS: 43235; G0121; J0697; J2704; J7120